=== PATIENT | male | born 1985 | race American Indian/Alaskan Native ===

== ENCOUNTER 2016-11-05 07:15 | Day surgery (SDC) | payer MEDICAID ==
[2016-10-17 09:32] VITALS: BMI 34.2
[2016-11-05] MEDS ORDERED: Midazolam 2 MG/2 ML VIAL ONE (09:11)
[2016-11-05] MEDS ORDERED: Propofol 10 mg/ml Inj (20 ML) ONE (09:11)
[2016-11-05] MEDS ORDERED: Lactated Ringer's 1,000 ML IV ONE (09:15)
[2016-11-05] MEDS ORDERED: Bupivacaine HCl 0.5% PF (10 ml) Inj ONE (09:19)
[2016-11-05] MEDS ORDERED: Bacitracin 500 Units/gm Oint Foilpak UD ONE (09:20)
[2016-11-05] MEDS ORDERED: ceFAZolin IV 2 gm in Dextrose 1 GM/50 ML BAG IVPB ONE (09:20)
[2016-11-05] MEDS ORDERED: Morphine 4 MG/ML VIAL ONE ×2 (11:54→12:04)
[2016-11-05] MEDS ORDERED: Neostigmine Methylsulfate 3mg/3ml Syringe IV ONE (11:55)
[2016-11-05] MEDS ORDERED: HYDROmorphone 0.5 mg/0.5 ml ISec IVP PRN (11:57)
[2016-11-05] MEDS ORDERED: Oxycodone/Acetaminophen 5/325 mg Tab PO PRN (12:28)
--- NOTE | 2016-11-05 12:28 | PCM.SURG1 ---
Surgeon's Initial Post Op Note - Surgeon's Notes Surgeon: Dr. Romero Chief Engineer Drilling And Recovery: Dr. Fair PGY-2 Type of Anesthesia: General Endo, Local Pre-Operative Diagnosis: Left small finger PIP contraction, tendon adhesions Operative Findings: see operative report Post-Operative Diagnosis: Left small finger PIP contraction, tendon adhesions Operation Performed: Left small finger removal of flexor tendon, insertion of mayank islverio, volar capsulotomy Specimen/Specimens Removed: flexor tendon Estimated Blood Loss: EBL {In ML}: 50 Blood Products Given: N/A Drains Used: No Drains Post-Op Condition: Good Date of Surgery/Procedure: 11/05/16 Time of Surgery/Procedure: 09:00
[2016-11-05 13:32] VITALS: O2SAT 100
[2016-11-05] MEDS ORDERED: HYDROmorphone 0.5 mg/0.5 ml ISec IVP ONE (14:55)
[2016-11-05 16:31] VITALS: BP 135/76; PULSE 59; RESP 18; TEMP 97
--- NOTE | 2016-11-20 12:47 | OP ---
PROCEDURE DATE: 11/05/2016 PREOPERATIVE DIAGNOSIS: Left small finger flexor tendon contracture and tendon adhesion. Proximal interphalangeal joint contracture. POSTOPERATIVE DIAGNOSIS: Left small finger flexor tendon contracture and tendon adhesion. Proximal interphalangeal joint contracture. SURGEON: Dr. Lola Romero. SUPERVISOR ELECTRON TUBE PROCESSING Dr. Denisse Fair. PROCEDURES: 1. Removal of left small finger flexor tendon in the finger, palm, and wrist. 2. Placement of Angelito silverio. 3. Volar capsulotomy of proximal interphalangeal joint. 4. Reconstruction of A4 kristin. 5. Revision of volar wrist scar. 6. Tenolysis of volar wrist flexor tendons. TOTAL FLUIDS GIVEN: 1 liter. ESTIMATED BLOOD LOSS: 75 mL. TOTAL TOURNIQUET TIME: 2 hours. COUNT: Lap, sponge and needle count were correct at the end of the case. CONDITION: The patient was stable upon discharge to recovery. INDICATIONS FOR SURGERY: The patient is a 31-year-old man who initially sustained a proximal phalanx fracture. At the time of his first tenolysis, it was noted that the FDP tendon was actually transected while the FDS was intact. The tendon was reconstructed with a palmaris graft. He underwent 2 subsequent tenolyses with incomplete active flexion of the DIP joint through our last surgery. In discussing with the patient the options of fusion versus tendon reconstruction, he opted for tendon reconstruction. He is here for stage I of tendon reconstruction. DESCRIPTION OF PROCEDURE: The patient was identified in the holding area. The left arm was marked. He was then laid supine on the operating room table. Once general anesthesia was induced, the patient's left arm was prepped and draped in the usual sterile fashion. Using an Esmarch, the hand and arm were exsanguinated and tourniquet inflated to 250 mm of pressure for a total of 2 hours. Beginning with an incision over the distal aspect of the finger, the area along the proximal phalanx was attempted to be preserved, but eventually the entire Johnny Z-plasty incisions were made into the palm and a separate incision at the wrist was performed in order to eliminate or remove the flexor tendon sheath. The FDS tendon was still noted to be intact at the base of the middle phalanx. The FDP tendon was debrided along the course of the flexor tendon sheath and carpal tunnel and the volar wrist leaving the distal 2 cm intact to the distal phalanx base. In the volar wrist, the previous wided scar which was 2 cm x 4 mm wide was removed full thickness. The incision was taken down identifying the median nerve and protecting it as the deep flexor tendons were identified. There was signficant synovitis noted. A volar capsulotomy over a volar plate was performed using a 15C sclapel in order to improve the contracture to a 15 degree contracture instead of a 45 degree contracture. The distal FDP tendon was split longitudinally and colton crossed to reconstruct the A4 kristin and create a cruciate ligament across the DIP joint. A Angelito silverio was then placed where FDP tendon used to be, threaded underneath the A2 kristin into the palm and to the level of the wrist. This was secured in place with a single 4-0 nylon suture. In the proximal forearm, the tendon was removed and tenolysis of the flexor tendons in the wrist was performed, debulking the scar tissue around the previously reconstructed FDP tendon. Wounds were irrigated. The tourniquet was deflated at this point and pressure held for 5 minutes. Any bleeding was controlled with electrocautery. The incisions were closed in the palm and the finger with 4-0 chromic interrupted horizontal mattress sutures, and the wrist was closed with 3-0 Monocryl to the deep dermis followed by 4-0 Monocryl running subcuticular. Dressings were applied using bacitracin, Adaptic, 4 x 4 gauze, Kerlix and secured in place with Coban. The patient tolerated the procedure well, was extubated on the table, transferred to a stretcher and brought to recovery in stable condition. Lola Romero MD cc: [id number] TT: 11/20/2016 12:46:50 christina HERNÁNDEZ
== END 2016-11-05 16:32 | disposition home or self-care (01) ==
LOC: C.SDS 07:15
PROVIDERS: ATTEND Plastic Surgery Surgery of the Hand
DX: M24.542 Contracture, left hand (principal); M67.844 Other specified disorders of tendon, left hand; M20.092 Other deformity of left finger(s)
CPT/HCPCS: 26390; 26500; 88305; C1762; J0690; J1170; J2250; J2270; J2405; J2704; J2710; J3010; J7120

== ENCOUNTER 2016-11-14 06:41 | Emergency (ER) | payer MEDICAID ==
[2016-11-14 06:41] VITALS: BMI 34.2
[2016-11-14 06:57] VITALS: RESP 16
--- NOTE | 2016-11-14 07:26 | C.PDOC ---
History Of Present Illness Pt presents to the ED with complains of intermittent diffuse abdominal pain x3 days. Pain is described as burning, cramping associated with vomiting and intermittent loose stools. Pt also reports due to vomiting, patient has been unable to take medications. Denies fever, chills, dysuria, back pain, GI bleed, or any other complaints. Denies trauma or recent travel. Time Seen by Provider: 11/14/16 07:17 Chief Complaint (Nursing): Abdominal Pain History Per: Patient History/Exam Limitations: no limitations Onset/Duration Of Symptoms: Days, Intermittent Episodes Current Symptoms Are (Timing): Still Present Severity: Moderate Location Of Pain/Discomfort: Diffuse Radiation Of Pain To:: None Quality Of Discomfort: Cramping, Burning Associated Symptoms: Vomiting, Diarrhea. denies: Fever, Chills, Urinary Symptoms Exacerbating Factors: None Alleviating Factors: None Recent travel outside of the [place]: No Past Medical History Reviewed: Historical Data, Nursing Documentation, Vital Signs Vital Signs: Last Vital Signs Temp 98.6 F 11/14/16 14:42 Pulse 61 11/14/16 14:42 Resp 16 11/14/16 14:42 BP 137/84 11/14/16 14:42 Pulse Ox 98 11/14/16 14:42 - Medical History PMH: COPD, Fractures, HIV ("SINCE 2013"), HTN Surgical History: Endoscopy Family History: States: Unknown Family Hx - Social History Hx Tobacco Use: Yes Hx Alcohol Use: Yes Hx Substance Use: No - Immunization History Hx Tetanus Toxoid Vaccination: Yes Hx Influenza Vaccination: Yes Hx Pneumococcal Vaccination: No Review Of Systems Except As Marked, All Systems Reviewed And Found Negative. Constitutional: Negative for: Fever, Chills Cardiovascular: Negative for: Chest Pain Respiratory: Negative for: Shortness of Breath Gastrointestinal: Positive for: Vomiting, Abdominal Pain, Diarrhea. Negative for: Hematochezia, Hematemesis Genitourinary: Negative for: Dysuria Musculoskeletal: Negative for: Back Pain Physical Exam - Physical Exam Appears: Non-toxic, No Acute Distress Skin: Warm, Dry, No Rash Head: Atraumatic, Normacephalic Eye(s): bilateral: Normal Inspection, PERRL, EOMI Oral Mucosa: Moist Neck: Normal ROM, Supple Chest: Symmetrical Cardiovascular: Rhythm Regular, No Friction Rub, No Murmur Respiratory: Normal Breath Sounds, No Rales, No Rhonchi, No Stridor, No Wheezing Gastrointestinal/Abdominal: Normal Exam, Soft, No Tenderness Back: Normal Inspection, No CVA Tenderness Extremity: Bilateral: Atraumatic Neurological/Psych: Oriented x3, Normal Speech, Normal Motor Gait: Steady ED Course And Treatment - Laboratory Results Result Diagrams: 11/14/16 08:12 11/14/16 09:12 O2 Sat by Pulse Oximetry: 100 (room air) Pulse Ox Interpretation: Normal Medical Decision Making Medical Decision Making: Plan: labs, pepcid, morphine, zofran, UA, IV fluids Patient reports that he stopped taking all his opiate medications and thinks he may be withdrawing from them. On re-exam, the patient reports improvement of symptoms. Lungs are CTA, heart is RRR, abdomen is soft, non-tender and patient is tolerating PO well. Patient is ambulatory in the ED with steady gait. Follow up with the medical doctor within 1-2 days, Return if worsened. Disposition - Disposition Referrals: Haydee Eddy MD [Medical Doctor] - Disposition: HOME/ ROUTINE Disposition Time: 14:00 Condition: GOOD Additional Instructions: Follow up with the medical doctor within 1-2 days, Return if worsened. Prescriptions: Famotidine [Pepcid] 20 mg PO DAILY #20 tab Ondansetron ODT [Zofran ODT] 1 odt PO BID PRN #10 odt PRN Reason: Nausea/Vomiting Instructions: Acute Nausea and Vomiting (ED) - Clinical Impression Clinical Impression: Abdominal pain, Opiate withdrawal - PA / INSURANCE CASE MANAGER / Resident Statement MD/DO has reviewed & agrees with the documentation as recorded. - Scribe Statement The provider has reviewed the documentation as recorded by the Mariajose Holt All medical record entries made by the Mariajose were at my direction and personally dictated by me. I have reviewed the chart and agree that the record accurately reflects my personal performance of the history, physical exam, medical decision making, and the department course for this patient. I have also personally directed, reviewed, and agree with the discharge instructions and disposition.
[2016-11-14] MEDS ORDERED: Sodium Chloride 0.9% 1,000 ML IV ONE ×2 (07:40→12:40)
[2016-11-14] MEDS ORDERED: Sodium Chloride 0.9% 1,000 ML ONE ×2 (07:52→12:53)
[2016-11-14] MEDS ORDERED: Morphine 4 MG/ML VIAL ONE (07:52)
[2016-11-14 08:26] LABS: RBC URINE < 1 /hpf (0-3); URINE BILIRUBIN NEGATIVE (NEGATIVE); URINE BLOOD NEGATIVE (NEGATIVE); URINE GLUCOSE (UA) NORMAL (Normal); URINE KETONE NEGATIVE (NEGATIVE); URINE LEUKOCYTE ESTERASE NEG Leu/uL (Negative); URINE PROTEIN 1+ mg/dL (NEGATIVE); URINE UROBILINOGEN NORMAL mg/dL (0.2-1.0); WBC URINE 1 /hpf (0-5)
[2016-11-14 08:28] LABS: URINE COLOR YELLOW (YELLOW)
[2016-11-14 08:32] LABS: BASO % 0.2 % (0.0-2.0); EOS % 0.3 % (0.0-4.0); HEMATOCRIT 44.2 % (35.0-51.0); LYMPH % 35.3 % (20.0-40.0); MEAN CELL VOLUME 73.5 fL (80.0-94.0); MEAN CORPUSCULAR HEMOGLOBIN 23.3 pg (27.0-31.0); MEAN CORPUSCULAR HGB CONC 31.7 g/dL (33.0-37.0); MEAN PLATELET VOLUME 8.6 fL (7.2-11.7); MONO # 0.6 K/uL (0.0-0.8); MONO % 7.5 % (0.0-10.0); NRBC % 0.1 % (0.0-2.0); RED CELL DISTRIBUTION WIDTH 15.7 % (11.5-14.5); WHITE BLOOD COUNT 8.4 K/uL (4.8-10.8)
[2016-11-14 09:23] LABS: CHLORIDE 101 mmol/L (98-107); POTASSIUM 3.3 mmol/L (3.6-5.2); SODIUM 140 mmol/L (132-148)
[2016-11-14 09:25] LABS: ALB/GLOB RATIO 1.5 (1.0-2.1); ALKALINE PHOSPHATASE 72 U/L (38-126); AST/SGOT 18 U/L (17-59); BILIRUBIN,TOTAL 0.6 mg/dL (0.2-1.3); BLOOD UREA NITROGEN 20 mg/dL (9-20); CARBON DIOXIDE 26 mmol/L (22-30); GFR AFRICAN-AMERICAN > 60; TOTAL PROTEIN 7.3 g/dL (6.3-8.3)
[2016-11-14 09:26] LABS: ALT/SGPT 25 U/L (21-72); CALCIUM 8.5 mg/dl (8.6-10.4); GLUCOSE,RANDOM 110 mg/dL (75-110)
--- NOTE | 2016-11-14 11:24 | CT ---
PROCEDURE: CT Abdomen and Pelvis without intravenous contrast HISTORY: abd pain COMPARISON: None. TECHNIQUE: Axial and reformatted coronal and sagittal CT images of the abdomen and pelvis were obtained without IV or oral contrast administration.. Contrast Dose: 0 IV contra Radiation dose: Total exam DLP = 1094.35 mGy-cm. This CT exam was performed using one or more of the following dose reduction techniques: Automated exposure control, adjustment of the mA and/or kV according to patient size, and/or use of iterative reconstruction technique. FINDINGS: LOWER THORAX: Unremarkable. LIVER: Unremarkable. No gross lesion or ductal dilatation. GALLBLADDER AND BILE DUCTS: Unremarkable. PANCREAS: Unremarkable. No gross lesion or ductal dilatation. SPLEEN: Unremarkable. ADRENALS: Unremarkable. No mass. KIDNEYS AND URETERS: Unremarkable. No hydronephrosis. No solid mass. VASCULATURE: Unremarkable. No aortic aneurysm. BOWEL: Unremarkable. No obstruction. No gross mural thickening. APPENDIX: Unremarkable. Normal appendix. PERITONEUM: Unremarkable. No free fluid. No free air. LYMPH NODES: Unremarkable. No enlarged lymph nodes. BLADDER: Unremarkable. REPRODUCTIVE: Unremarkable. BONES: No acute fracture. OTHER FINDINGS: None. IMPRESSION: No evidence of nephrolithiasis or hydronephrosis. No CT evidence of cholecystitis pancreatitis or appendicitis.
[2016-11-14] MEDS ORDERED: Aluminum Hydroxide/Magnesium Hydroxide Susp (30 mL) PO STA (12:19)
[2016-11-14] MEDS ORDERED: Belladonna-Phenobarbital PO STA (12:19)
[2016-11-14] MEDS ORDERED: Aluminum Hydroxide/Magnesium Hydroxide Susp (30 mL) ONE (12:28)
[2016-11-14] MEDS ORDERED: Belladonna-Phenobarbital ONE (12:28)
[2016-11-14 14:43] VITALS: BP 137/84; PULSE 61; TEMP 98.6
[2016-11-22 06:24] VITALS: O2SAT 100
== END 2016-11-14 14:47 | disposition home or self-care (01) ==
LOC: C.ER 06:41
DX: F11.23 Opioid dependence with withdrawal (principal); R10.84 Generalized abdominal pain; T40.0X5A Adverse effect of opium, initial encounter; Y92.009 Unspecified place in unspecified non-institutional (private) residence as the place of occurrence of the external cause
CPT/HCPCS: 74176; 80053; 81001; 83690; 85025; 96374; 96375; 99285; J2405; J7040

== ENCOUNTER 2016-12-13 22:00 | Emergency (ER) | payer MEDICAID ==
[2016-12-13 22:01] VITALS: BMI 34.2
[2016-12-13 22:12] VITALS: BP 149/75; PULSE 95; RESP 20; TEMP 98; O2SAT 100
[2016-12-13] MEDS ORDERED: Dexamethasone 4 mg/1 ml IM STA (22:46)
[2016-12-13] MEDS ORDERED: Oxycodone/Acetaminophen 5/325 mg Tab PO STA (22:46)
[2016-12-13] MEDS ORDERED: Oxycodone/Acetaminophen 5/325 mg Tab ONE (22:53)
[2016-12-13] MEDS ORDERED: Dexamethasone 4 mg/1 ml ONE (22:53)
--- NOTE | 2016-12-13 23:02 | C.PDOC ---
History Of Present Illness 31 year old male presents to the ED with complaints of a noted lump for one week to an area of a partial tendon repair with "silicone placement" to left mid -anterior wrist performed in October. Patient states he was seen by Dr. Shaw and was placed on steroids but the swelling continued. He also states he called Dr. Shaw who then met him at [facility] and prescribed medrol pack which he has with him at ED visit. Patient was instructed by Dr. Shaw to fill the prescription today and to see him next week for possible surgery. He is unable to fill the prescription today and due to the pain is requesting a dose of the steroid and pain medication. Patient denies any fever or new trauma. Time Seen by Provider: 12/13/16 22:29 Chief Complaint (Nursing): Abnormal Skin Integrity History Per: Patient, Other (Dr. Shaw ) History/Exam Limitations: no limitations Onset/Duration Of Symptoms: Days (one week ) Current Symptoms Are (Timing): Still Present Location Of Injury: Left: Wrist, Anterior: Wrist Quality Of Symptoms: Swollen. denies: Painful, Itching, Draining Severity: Moderate Recent travel outside of the [place]: No Additional History Per: Prior Records Past Medical History Reviewed: Historical Data, Nursing Documentation, Vital Signs Vital Signs: Last Vital Signs Temp 98 F 12/13/16 22:09 Pulse 95 H 12/13/16 22:09 Resp 20 12/13/16 23:07 BP 149/75 12/13/16 22:09 Pulse Ox 100 12/14/16 05:18 - Medical History PMH: Anxiety, COPD, Depression, Fractures (HAND), HIV ("SINCE 2013"), HTN Surgical History: Endoscopy Family History: States: Unknown Family Hx - Social History Hx Tobacco Use: Yes Hx Alcohol Use: Yes Hx Substance Use: No - Immunization History Hx Tetanus Toxoid Vaccination: Yes Hx Influenza Vaccination: Yes Hx Pneumococcal Vaccination: No Review Of Systems Constitutional: Negative for: Fever, Chills, Sweats Cardiovascular: Negative for: Chest Pain, Palpitations Respiratory: Negative for: Cough, Shortness of Breath Gastrointestinal: Negative for: Nausea, Vomiting, Abdominal Pain, Diarrhea Musculoskeletal: Positive for: Arm Pain (left mid-anterior wrist pain at sight of "lump" ) Physical Exam - Physical Exam Appears: Non-toxic, No Acute Distress Skin: Warm, Dry Head: Atraumatic Oral Mucosa: Moist Neck: Supple Chest: Symmetrical, No Deformity Cardiovascular: Rhythm Regular Extremity: No Normal ROM (mild limitation at the left wrist), Other (minimally tender 5cm x 4cm elevated mass to mid- anterior left wrist with healed scar in the center. Non-fluctuant, minimal erythema and no drainage. ) Neurological/Psych: Oriented x3 ED Course And Treatment O2 Sat by Pulse Oximetry: 100 (room air ) Progress Note: Patient was given decadron and requested one percocet prior to discharge. He was advised to keep appointment with Dr. Shaw Disposition Counseled Patient/Family Regarding: Diagnosis, Need For Followup, Rx Given - Disposition Disposition: HOME/ ROUTINE Disposition Time: 22:59 Condition: STABLE Additional Instructions: Please continue medrol pack as prescribed by dr BRANNON Take tylenol extra strength for pain Return to ER if worse Forms: General Discharge Instructions - Clinical Impression Clinical Impression: Skin irritation, Foreign body reaction of the skin - Scribe Statement The provider has reviewed the documentation as recorded by the Scribladan Poon All medical record entries made by the Destinyibladan were at my direction and personally dictated by me. I have reviewed the chart and agree that the record accurately reflects my personal performance of the history, physical exam, medical decision making, and the department course for this patient. I have also personally directed, reviewed, and agree with the discharge instructions and disposition.
== END 2016-12-13 23:07 | disposition home or self-care (01) ==
LOC: C.ER 22:00
DX: L98.8 Other specified disorders of the skin and subcutaneous tissue (principal)
CPT/HCPCS: 96372; 99283; J1100

== ENCOUNTER 2017-01-06 07:03 | Day surgery (SDC) | payer MEDICAID ==
[2017-01-06 07:04] VITALS: BMI 30.7
[2017-01-06] MEDS ORDERED: Propofol 10 mg/ml Inj (20 ML) ONE (07:32)
[2017-01-06] MEDS ORDERED: Midazolam 2 MG/2 ML VIAL ONE (07:32)
[2017-01-06] MEDS ORDERED: Bacitracin 500 Units/gm Oint Foilpak UD ONE (07:51)
[2017-01-06] MEDS ORDERED: Bupivacaine HCl 0.25% PF (10 ml) Inj ONE (07:51)
[2017-01-06] MEDS ORDERED: Triamcinolone Acetonide 40 mg/mL Inj ONE (07:52)
[2017-01-06] MEDS ORDERED: Lidocaine 1% Inj (20ml) ONE (07:52)
[2017-01-06] MEDS ORDERED: Lactated Ringer's 1,000 ML IV ONE ×2 (08:03→10:20)
[2017-01-06] MEDS: ceFAZolin IV 2 gm in Dextrose 1 GM/50 ML BAG IVPB ONE ×2 (08:10→08:41)
[2017-01-06] MEDS ORDERED: Bupivacaine HCl 0.5% PF (10 ml) Inj ONE (08:57)
[2017-01-06] MEDS ORDERED: Morphine 4 MG/ML VIAL ONE (09:33)
[2017-01-06] MEDS: HYDROmorphone 0.5 mg/0.5 ml ISec IVP PRN ×2 (11:05→11:45)
--- NOTE | 2017-01-06 11:07 | PCM.SURG1 ---
Surgeon's Initial Post Op Note - Surgeon's Notes Surgeon: Nick Asset Protection Assistant: Danyelle PGY2 Type of Anesthesia: General LMA, Local Pre-Operative Diagnosis: flexor tendon injury L small finger Operative Findings: scar tissue, synovitis, mayank silverio Post-Operative Diagnosis: same Operation Performed: Stage II mayank silverio removal and staged reconstruction of L small finger Specimen/Specimens Removed: synovitis/scar tissue Estimated Blood Loss: EBL {In ML}: 75 Blood Products Given: N/A Drains Used: Shelby Post-Op Condition: Good Date of Surgery/Procedure: 01/06/17 Time of Surgery/Procedure: 11:07
[2017-01-06] MEDS ORDERED: Oxycodone/Acetaminophen 5/325 mg Tab PO PRN (13:34)
[2017-01-06 13:50] VITALS: O2SAT 100
[2017-01-06 15:39] VITALS: BP 116/74; PULSE 72; RESP 20; TEMP 98.2
--- NOTE | 2017-01-08 13:31 | RAD ---
PROCEDURE: Intraoperative Fluoroscopy. HISTORY: LT. HAND SMALL FINGER JOINT RELEASE FINDINGS: Fluoroscopic assistance was provided for left 5th digit removal of Angelito silverio. Please refer to the operative report from
--- NOTE | 2017-01-09 12:52 | PCM.OP ---
Operative Report - Operative Report Date of Surgery/Procedure: 01/06/17 Time of Surgery/Procedure: 10:00 Surgeon: Lola Romero MD Server Assistant: Piero Bassett DO Anesthesia/Sedation: General endotrachial Pre-Operative Diagnosis: Left small finger status post Angelito sim placement for tendon reconstruction. Reactive tensosynovitis at wrist from Angelito Sim Post-Operative Diagnosis: Left small finger status post Angelito sim placement for tendon reconstruction. Reactive tensosynovitis at wrist from Angelito Sim Indication for Surgery: The patient is a 31-year-old male, who has several tenolysis procedures for a small finger tendon adhesion without success. He then underwent first stage of flexor tendon reconstruction in October and is here for the second stage. Operative Findings: PROCEDURE: Left small finger removal of Angelito sim tendon reconstruction using a slip of FCR tendon. Radical debridement of flexor tendon synovitis at the wrist of the index, long, reing and small fingers FDS and FDP tendons. Procedure/Operation Description: The patient was identified in the holding area. The left arm was marked. He was then brought into operating room and laid supine on the operating room table. Once general anesthesia was induced, the left arm was prepped and draped in the usual sterile fashion. Using an Esmarch, the arm was exsanguinated and tourniquet was inflated to total of 70 minutes. Begining with an incision in the finger over the DIP, the incision was created with a 15 scalpel. The Angelito sim was identified in the tip. The distal pahlanx base was exposed with a freer elevator. A second incision was. made at the volar wrist in order to expose the FDP to the ring finger. There was significant synovitis present in the wrist. The superficial and the deep flexor tendons to the index, long, ring and small fingers were encased in thick synovitis tissue. The ring finger PDF was displaced more superficially and there was evidence of the previous tendon weave scarring along the tendon. The palmaris tendon has been previously harvested. A split FCR tendon graft was going to be used. Under direct visualization, the FCR was divided at the level of the wrist and traced proximally. Using a tendon stripper, the 1/2 tendon was seperated from the muscle and rest of the FCR tendon. The proximal end muscle was debrided and the tendon was then set aside until we were ready. A radical synovectomy was performed of the flexor tendons. The median nerve was identified and preserved. The ulnar artery and nerve was identified and preserved. The tendon graft was then sewn to the Angelito sim at the level of the wrist and the Angelito sim was used to pull the flexor tendon sheath all the way to the distal aspect of the finger. In the finger, a 1.5 mm micro anchor was placed into the distal phalanx and the distal end of the tendon graft was secured in place with the provided sutures. The proximal aspect of the tendon was weaved into the FDP of the right finger using a Pulvertaft weave technique with 3 separate weaves. The weave was secured with 3-0 Supramid suture in a horizontal matress suture. The tension was set by observing natural cascade and bringing the small finger an additional 30% more flexion than would be normally expected. The tourniquet was deflated at this point and any pressure held for 15 minutes. Any bleeding was controlled with electrocautery before all of the incisions were closed. The incision in the finger was closed with 4-0 Chromic in an interrupted simple sutures. The wrist was closed with 3-0 Monocryl to the deep dermis and a shelby drain was placed in the wound for the synovitis. 4-0 Nylon sutures were used to close the skin at the wrist. The wound was then dressed with Adaptic and bacitracin and the hand 4 x 4 gauze. A dorsal shell was then applied. The hand was padded with Webril. Dorsal shell was applied and secured in place with an JULIA wrap. The patient tolerated the procedure well, was extubated on the table, and transferred to recovery. Estimated Blood Loss: 75 mL Blood Replaced: None Sponge/Instrument Count: Lap, sponge and needle count were correct at the end of the case. Drains: Shelby x 1 Complications: None. Specimen: Synovitial tissue and scar tissue Discharge & Condition: The patient was stable upon discharge to recovery.
== END 2017-01-06 15:30 | disposition home or self-care (01) ==
LOC: C.SDS 07:03
PROVIDERS: ATTEND Plastic Surgery Surgery of the Hand
DX: T84.89XA Other specified complication of internal orthopedic prosthetic devices, implants and grafts, initial encounter (principal); M67.844 Other specified disorders of tendon, left hand; M25.642 Stiffness of left hand, not elsewhere classified; M65.842 Other synovitis and tenosynovitis, left hand
CPT/HCPCS: 11043; 26320; 26500; 88305; C1713; J0690; J1170; J2250; J2270; J2704; J3010; J7120

== ENCOUNTER 2017-03-30 13:41 | Inpatient (IN) | payer MEDICAID ==
[2017-03-30 13:41] VITALS: BMI 30.7
--- NOTE | 2017-03-30 14:27 | C.PDOC ---
History Of Present Illness 31 y/o male presents to ED with complaints of feeling depressed and suicidal ideation. Patient has no plan in mind and denies any physical complaints at this time. Time Seen by Provider: 03/30/17 14:10 Chief Complaint (Nursing): Psychiatric Evaluation History Per: Patient History/Exam Limitations: no limitations Onset/Duration Of Symptoms: Hrs Current Symptoms Are (Timing): Still Present Suicide/Self Injury Attempted (Context): None Modifying Factor(s): None Associated Symptoms: Depression, Suicidal Thoughts Past Medical History Reviewed: Historical Data, Nursing Documentation, Vital Signs Vital Signs: Last Vital Signs Temp 98.5 F 03/30/17 17:39 Pulse 72 03/30/17 17:39 Resp 16 03/30/17 18:53 BP 140/95 H 03/30/17 17:39 Pulse Ox 100 03/30/17 17:39 - Medical History PMH: Anxiety, COPD, Depression, Fractures (HAND LEFT), HIV ("SINCE 2013") Surgical History: Endoscopy Family History: States: No Known Family Hx - Social History Hx Tobacco Use: Yes Hx Alcohol Use: Yes Hx Substance Use: No - Immunization History Hx Tetanus Toxoid Vaccination: Yes Hx Influenza Vaccination: Yes Hx Pneumococcal Vaccination: No Review Of Systems Except As Marked, All Systems Reviewed And Found Negative. Constitutional: Negative for: Fever, Chills Cardiovascular: Negative for: Chest Pain Respiratory: Negative for: Shortness of Breath Gastrointestinal: Negative for: Nausea, Vomiting Skin: Negative for: Rash Psych: Positive for: Depression, Suicidal ideation Physical Exam - Physical Exam Appears: Non-toxic, No Acute Distress Skin: Normal Color, Warm, Dry, No Rash Head: Atraumatic, Normacephalic Eye(s): bilateral: Normal Inspection Oral Mucosa: Moist Neck: Normal ROM, Supple Chest: Symmetrical Cardiovascular: Rhythm Regular, No Murmur Respiratory: Normal Breath Sounds, No Rales, No Rhonchi, No Wheezing Gastrointestinal/Abdominal: Soft, No Tenderness, No Guarding, No Rebound Extremity: Normal ROM, Capillary Refill (<2 seconds) Neurological/Psych: Oriented x3 ED Course And Treatment - Laboratory Results Result Diagrams: 03/30/17 14:33 03/30/17 14:33 O2 Sat by Pulse Oximetry: 100 (RA) Pulse Ox Interpretation: Normal Reevaluation Time: 16:42 Reassessment Condition: Unchanged (stable) - Physician Consult Information Outcome Of Conversation: [id number]: d/w Crisis, ok to Psych Medical Decision Making Medical Decision Making: portacath appears normal no acute interventions required anxieties allayed. Disposition Doctor Will See Patient In The: Office Counseled Patient/Family Regarding: Studies Performed, Diagnosis - Disposition Disposition: HOME/ ROUTINE Disposition Time: 16:19 Condition: GOOD - Clinical Impression Clinical Impression: Bipolar 1 disorder - Scribe Statement The provider has reviewed the documentation as recorded by the Destinyibladan Tony All medical record entries made by the Destinyibladan were at my direction and personally dictated by me. I have reviewed the chart and agree that the record accurately reflects my personal performance of the history, physical exam, medical decision making, and the department course for this patient. I have also personally directed, reviewed, and agree with the discharge instructions and disposition.
[2017-03-30 14:41] LABS: BASO % 0.6 % (0.0-2.0); LYMPH % 42.1 % (20.0-40.0); MEAN CELL VOLUME 75.4 fL (80.0-94.0); MEAN CORPUSCULAR HEMOGLOBIN 24.1 pg (27.0-31.0); MEAN PLATELET VOLUME 8.1 fL (7.2-11.7); MONO # 0.4 K/uL (0.0-0.8); MONO % 9.1 % (0.0-10.0); RED CELL DISTRIBUTION WIDTH 16.1 % (11.5-14.5); WHITE BLOOD COUNT 4.7 K/uL (4.8-10.8)
[2017-03-30 14:55] LABS: RBC URINE < 1 /hpf (0-3); WBC URINE 1 /hpf (0-5)
[2017-03-30 14:56] LABS: URINE BILIRUBIN NEGATIVE (NEGATIVE); URINE BLOOD NEGATIVE (NEGATIVE); URINE COLOR Yellow (YELLOW); URINE GLUCOSE (UA) NORMAL (Normal); URINE KETONE NEGATIVE (NEGATIVE); URINE LEUKOCYTE ESTERASE NEG Leu/uL (Negative); URINE PROTEIN NEGATIVE (NEGATIVE); URINE UROBILINOGEN NORMAL mg/dL (0.2-1.0)
[2017-03-30 15:13] LABS: BLOOD UREA NITROGEN 18 mg/dL (9-20); CARBON DIOXIDE 25 mmol/L (22-30); CHLORIDE 105 mmol/L (98-107); GFR AFRICAN-AMERICAN > 60; GLUCOSE,RANDOM 106 mg/dL (75-110); POTASSIUM 3.6 mmol/L (3.6-5.2); SODIUM 143 mmol/L (132-148); TOTAL PROTEIN 7.5 g/dL (6.3-8.3)
[2017-03-30 15:14] LABS: ALB/GLOB RATIO 1.6 (1.0-2.1); ALCOHOL SERUM < 10 mg/dl (0-10); ALKALINE PHOSPHATASE 63 U/L (38-126); ALT/SGPT 36 U/L (21-72); AST/SGOT 31 U/L (17-59); BILIRUBIN,TOTAL 0.3 mg/dL (0.2-1.3); CALCIUM 9.6 mg/dl (8.6-10.4)
--- NOTE | 2017-03-30 18:32 | PCM.BM ---
<Peggy Matos - Last Filed: 03/30/17 18:28> Treatment Plan Problems - Problems identified on initial assessmt Depression Date Initiated: 03/30/17 Time Initiated: 18:00 Assessment reference: NA Status: Active Suicidal Ideations Date Initiated: 03/30/17 Time Initiated: 18:00 Assessment reference: NA Status: Active Treatment assets and liabiliti Patient Assests: adapts well, cooperative, ADL independent, negotiates basic needs, cognitively intact Patient Liabilities: live alone (lives with ), financial problems ( Unemployed), substance abuse (Negative), medical problems (HIV+) - Milieu Protocol Maintain good personal hygiene: daily Encourage regular showers, daily Remind patient to perform daily oral care, other Assist patient to perform ADL's (Self) Conduct patient checks and document Observation sheet: Q15 minutes (Safety) Maintain personal safety: every shift Educate patient to report safety concerns to staff, every shift Monitor environment for contraband/sharps Medication safety: Monitor for expected outcome, potential side effects: every shift, Assess barriers to learning: every shift, Assess readiness for medication education: every shift <Lynne Mendez - Last Filed: 04/01/17 11:43> Family Contact Family involvement: Family/SO is involved Family contact: Patient agrees to contact Family contact name: Srinivasa Landers- Family contacted how many times per week?: 1 - Goals for Treatment Patient goals for treatment: "I want to go home." Discharge/Continuing Care - Education Needs Education Needs: Patient Medication, Patient Coping Skills - Discharge Discharge Criteria: Tolerates medication w/o severe side effects, Free of Suicidal thoughts Discharge to:: Home, With Family - Treatment Team Participation Discussed with Family/SO: Yes Was Patient/Family/SO present at Treatment Team Meeting: Yes <Rah Laughlin - Last Filed: 04/01/17 11:53> - Diagnosis (1) Bipolar 1 disorder Status: Acute Interventions: 04/01/17 11:53 * Assess/adjust medications daily and /or as needed * See patient on an individual basis 7x/week to assess level of manic behaviors and stability * Discuss risks, benefits, side effects and alternatives of medications * <Jana Cox - Last Filed: 04/01/17 14:53> - Milieu Protocol Maintain good personal hygiene: every shift Encourage regular showers, every shift Remind patient to perform daily oral care, every shift Assist patient to perform ADL's Maintain personal safety: every shift Educate patient to report safety concerns to staff, every shift Monitor environment for contraband/sharps Medication safety: Monitor for expected outcome, potential side effects: every shift, Assess barriers to learning: every shift, Assess readiness for medication education: every shift
[2017-03-31] MEDS: Hydrocodone/Acetaminophen 5 mg /300 mg Tab PO PRN ×4 (00:13→18:24)
[2017-03-31] MEDS: STRIBILD TABLET PO SCH (10:02)
--- NOTE | 2017-03-31 10:07 | PCM.PSYCH ---
Initial Psychiatric Evaluation - Initial Psychiatric Evaluation Type of Admission: Voluntary Legal Status: Capacity Chief Complaint (in patient's own words): "I don't feel good." History of Present Illness and Precipitating Events: Pt. is a 31 y/o male who presented to the ED for ongoing suicidal and homicidal thoughts for 1 month. Pt. says he has stopped taking his medications for 1 month now, and this caused him to become more irritable and depressed. Pt. stated that he would cut his wrists or stop taking his medications so that he would " slowly." Pt. states he has felt suicidal before in the past, approximately 3 yrs. ago, which prompted psychiatric admission in [place], and previous to that he attempted suicide via cutting as a juvenile, which led to hospitalization for 1-2 yrs. Pt. has been seeing Dr. Wilkerson at [facility] for a month now for bipolar d/o, depression, and anxiety. Pt. denies use of heroin, cocaine, marijuana, cigarettes, and alcohol. Pt. states he sometimes talks to himself and hears his own voices in his head. Pt. denies suicidal ideation, but admits to having homicidal ideation when he is in crowded places. Pt. reports he is anxious b/c he does not want to stay in the hospital with all the patients. Pt. reports to having racing thoughts and elevated mood at times, where he becomes very fidgety and paces back and forth. Pt. denies flight of ideas and denies hopelessness and helplessness. He states sleep and appetite have been okay. Pt. remains emotional and tearful throughout the interview. PMH: HIV , HTN Fam Hx: denies Allergy: aspirin, cranberry juice Social Hx: ; lives alone; no children; unemployed--TRA paying rent After care discussed. Pt. plans to stay on his medications and continue seeing Dr. Wilkerson at [facility]. Current Medications: Active Medications Generic Name Dose Route Start Last Admin Trade Name Freq PRN Reason Stop Dose Admin Acetaminophen 650 mg 03/30/17 18:54 Tylenol 325mg Tab PO Q6 PRN Pain, moderate (4-7) Acetaminophen/Hydrocodone Bitart 2 tab 03/30/17 18:53 03/31/17 06:41 Vicodin 5 Mg-300 Mg PO 04/06/17 18:54 2 tab Q6H PRN Administration Pain, severe (8-10) Aripiprazole 10 mg 03/31/17 18:00 Abilify PO QPM DAVID Citalopram Hydrobromide 20 mg 03/31/17 10:00 03/31/17 09:21 Celexa PO 20 mg DAILY DAVID Administration Gabapentin 300 mg 03/30/17 18:15 03/31/17 09:20 Neurontin PO 300 mg BID DAVID Administration Gemfibrozil 600 mg 03/31/17 10:00 03/31/17 09:20 Lopid PO 600 mg DAILY DAVID Administration Home Med 1 tab 03/31/17 10:00 03/31/17 10:02 Patient's Own Medication PO 1 tab DAILY DAVID Administration Hydroxyzine HCl 50 mg 03/30/17 18:15 03/31/17 09:20 Atarax PO 50 mg Q6H PRN Administration Anxiety Ibuprofen 600 mg 03/30/17 18:15 Motrin Tab PO Q6H PRN Pain, moderate (4-7) Pneumococcal Polyvalent Vaccine 0.5 ml 04/02/17 10:00 Pneumovax 23 Vaccine IM 04/02/17 10:01 .ONCE ONE Quetiapine Fumarate 100 mg 03/30/17 22:00 03/30/17 21:50 Seroquel PO Not Given HS DAVID Trazodone HCl 100 mg 03/30/17 18:15 Desyrel PO HS PRN Insomnia Past Psychiatric History - Past Psychiatric History Previous Treatment History: None Pertinent Medical Hx (Current Medical&Sleep Prob, Allergies): Allergies Allergy/AdvReac Type Severity Reaction Status Date / Time aspirin AdvReac Severe blood in Verified 12/13/16 22:15 stool ibuprofen AdvReac Severe blood in Verified 12/13/16 22:15 stool CRANBERRY JUICE Allergy Uncoded 12/13/16 22:15 Aripiprazole 10 mg PO BID 03/30/17 Citalopram Hydrobromide [Citalopram HBr] 20 mg PO DAILY 03/30/17 Doxepin HCl 25 mg PO HS 03/30/17 Elviteg/Maia/Emtric/Tenofo Dis [Stribild] 1 tab PO DAILY 03/30/17 Gemfibrozil 600 mg PO DAILY 03/30/17 Hydrocodone/Acetaminophen [Acetaminophen-Hydrocodone Bitartrate 325 mg-1] 1 tab PO Q6 PRN 03/30/17 Loratadine [Claritin] 10 mg PO DAILY 03/30/17 Quetiapine Fumarate [Seroquel] 300 mg PO HS 03/30/17 Review of Systems - Review of Systems All systems: reviewed and no additional remarkable complaints except - Neurological Neurological: UNREMARKABLE - Psychiatric Psychiatric: Anhedonia, Anxiety, Depression, Homicidal Ideation, Mood Swings, Suicidal Ideation. absent: Auditory Hallucinations, Hopelessness, Visual Hallucinations Mental Status Examination - Personal Presentation Personal Presentation: Looks stated age - Affect Affect: Constricted, Depressed - Motor Activity Motor Activity: Calm - Reliability in Providing Information Reliability in Providing Information: Fair - Speech Speech: Organized - Mood Mood: Depressed, Anxious - Formal Thought Process Formal Thought Process: Hallucinations, Delusions, Paranoia, Flight of ideas - Hallucinations/Delusions Hallucinations: Visual, Auditory Delusions: Persecution - Obsessions/Compulsions Obsessions: No Compulsions: No - Cognitive Functions Orientation: Person, Place, Situation, Time Sensorium: Alert Attention/Concentration: Attentive Abstract Thinking: [place] Estimate of Intelligence: Below average Judgement: Imparied, as evidence by: Poor judgement, Imparied, as evidence by: Lack of insight into illness Memory: Remote intact, as evidenced by: Abilit to recall sig. life events - Risk Risk: Suicidal, Homicidal, Diminished functioning - Limitations Limitations: Living alone, Other (unemployed) DSM 5 DX - DSM 5 DSM 5 Diagnosis: Bipolar d/o, Mixed severe w psychotic features - Recommended/Plan of Treatment Treatment Recommendations and Plan of Treatment: Bipolar d/o, Mixed severe w psychotic features CBT Psychoeducation Supportive therapy and group therapy Attend groups and activities Abilify 10 mg PO QPM Seroquel 100 mg HS DAVID Trazodone 100 mg HS PRN Gabapentin 300 gm PO BID - Smoking Cessation Smoking Cessation Initiated: No
[2017-04-01] MEDS: Hydrocodone/Acetaminophen 5 mg /300 mg Tab PO PRN ×4 (00:42→18:55)
[2017-04-01] MEDS: STRIBILD TABLET PO SCH (09:58)
--- NOTE | 2017-04-01 11:41 | PCM.PYCHPN ---
Psychiatric Progress Note - Psychiatric Progress Note Patient seen today, length of contact: 15 min. Patient Chief Complaint: "I feel better." Problems Identified/Issues Discussed: Pt. is seen, chart reviewed, case discussed with staff. Pt. states his mood is much better today. As per nurse, pt. slept very well through the night, but the pt. claims that he feels like he did not--"I don't feel rested when I wake up." Pt. denies suicidal and homicidal ideation and denies visual and auditory hallucinations at this time. Pt. denies racing thoughts. He states staying in the hospital is making him even more anxious and wants to be discharged as soon as possible. No new symptoms reported, improving slowly and needs more time. No SEs from medications, risks discussed. After care discussed. He will be seeing Dr. Wilkerson at [facility]. Medication Change: No Medical Record Reviewed: Yes Mental Status Examination - Cognitive Function Orientation: Person, Place, Situation, Time Memory: Intact Attention: WNL Concentration: WNL Association: WNL Fund of Knowledge: WNL - Mood Mood: Depressed, Anxious - Affect Affect: Constricted, Depressed - Speech Speech: Soft - Formal Thought Process Formal Thought Process: Hallucinations, Delusions, Paranoia, Flight of ideas - Homicidal Ideation Homicidal Ideation: Yes Goal/Treatment Plan - Goal/Treatment Plan Need for Continued Stay: Remain at risks for inpatient hospitalization, Severe depression anxiety, Discharge may exacerbated symptoms Progress Toward Problem(s) and Goals/Treatment Plan: Bipolar d/o, Mixed severe w psychotic features CBT Psychoeducation Supportive therapy and group therapy Attend groups and activities Abilify 10 mg PO QPM Seroquel 100 mg HS DAVID Trazodone 100 mg HS PRN Gabapentin 300 gm PO BID Estimated Date of D/C: 04/03/17
[2017-04-01 16:47] VITALS: O2SAT 99
[2017-04-02] MEDS: Hydrocodone/Acetaminophen 5 mg /300 mg Tab PO PRN ×2 (00:45→07:42)
[2017-04-02 08:37] VITALS: BP 143/78; PULSE 80; RESP 19; TEMP 98.1
[2017-04-02] MEDS: STRIBILD TABLET PO SCH (09:36)
--- NOTE | 2017-04-02 09:43 | PCM.PYCHDC ---
Mental Status Examination - Mental Status Examination Orientation: Person, Place, Situation, Time Memory: Intact Mood: Neutral Affect: Constricted Speech: Soft Attention: WNL Concentration: WNL Association: WNL Fund of Knowledge: WNL Formal Thought Process: No Impairment Description of patient's judgement and insight: good, fair Psychotic Thoughts and Behaviors: denies any AVH Suicidal Ideation: No Current Homicidal Ideation?: No Discharge Summary - Discharge Note Reason for Hospitalization: Pt. is a 31 y/o male who presented to the ED for ongoing suicidal and homicidal thoughts for 1 month. Pt. says he has stopped taking his medications for 1 month now, and this caused him to become more irritable and depressed. Pt. stated that he would cut his wrists or stop taking his medications so that he would " slowly." Pt. states he has felt suicidal before in the past, approximately 3 yrs. ago, which prompted psychiatric admission in [place], and previous to that he attempted suicide via cutting as a juvenile, which led to hospitalization for 1-2 yrs. Pt. has been seeing Dr. Wilkerson at [facility] for a month now for bipolar d/o, depression, and anxiety. Pt. denies use of heroin, cocaine, marijuana, cigarettes, and alcohol. Pt. states he sometimes talks to himself and hears his own voices in his head. Pt. denies suicidal ideation, but admits to having homicidal ideation when he is in crowded places. Pt. reports he is anxious b/c he does not want to stay in the hospital with all the patients. Pt. reports to having racing thoughts and elevated mood at times, where he becomes very fidgety and paces back and forth. Pt. denies flight of ideas and denies hopelessness and helplessness. He states sleep and appetite have been okay. Pt. remains emotional and tearful throughout the interview. Consultations:: List each consultation separately and include: 1. Reason for request. 2. Findings. 3. Follow-up Summary of Hospital Course include:: 1. Description of specific treatment plan utilized for patients during their course of treatmen. 2. Summarize the time- course for resolution of acute symptoms and/or regressed behaviors. 3. Describe issues identified and worked on during hospitalization. 4. Describe medication utilized. 5. Describe medical problems identified and treated. 6. Reassessment of suicide risk Summary of Hospital Course: During the course of his stay, patient (pt) started progressively improving and he no longer remained irritable, depressed, paranoid, and suicidal. His mood was improved and he started attending groups and meetings and started socializing. Patient denied any feelings of hopelessness, helplessness, and worthlessness, denied any problem with the sleep or appetite, denied suicidal ideation or homicidal ideation. Pt denied any auditory or visual hallucinations. Some changes were made in his current medications and patient was discharged on following medications. He tolerated these medications very well and denied any side effects. CBT and LA were used. - Diagnosis (1) Bipolar 1 disorder Current Visit: Yes Status: Acute - Final Diagnosis (DSM 5) Condition upon Discharge: GOOD DSM 5: Bipolar d/o, Mixed severe w psychotic features Disposition: HOME/ ROUTINE Follow-up Treatment Plan: Education: Pt was educated and counseled about the risks and benefits of taking and not taking medications. Pt was educated and counseled about the risks of drinking and abusing drugs. Pt was educated and counseled to go to the ER or call 911 if pt develop suicidal ideation or homicidal ideation, worsening of symptoms or severe side effects of the meds. Prescriptions/Medication Reconciliation: ARIPiprazole [Abilify] 10 mg PO QPM #30 tab Citalopram [celEXA] 20 mg PO DAILY #30 tab Gabapentin [Neurontin] 300 mg PO BID #60 cap QUEtiapine [Seroquel] 100 mg PO HS #30 tab - Smoking Cessation Smoking Cessation Medication prescribed: No - Antipsychotic Medications Pt discharged on 2 or more routine antipsychotic medications: No
[2017-04-02] MEDS ORDERED: Pneumococcal 23-Valent Vaccine IM ONE (10:00)
== END 2017-04-02 11:20 | disposition home or self-care (01) | DRG 430 ==
LOC: C.ER 13:41 → C.9E 16:41 → C.5E 17:35
PROVIDERS: ADMIT Psychiatry & Neurology Psychiatry; ATTEND Psychiatry & Neurology Psychiatry
PROC: GZHZZZZ Group Psychotherapy (ICD-10-PCS; principal; 2017-03-30)
PROC: GZ58ZZZ Individual Psychotherapy, Cognitive-Behavioral (ICD-10-PCS; 2017-03-30)
PROC: GZ56ZZZ Individual Psychotherapy, Supportive (ICD-10-PCS; 2017-03-30)
DX: F31.64 Bipolar disorder, current episode mixed, severe, with psychotic features (principal); R45.851 Suicidal ideations; I10 Essential (primary) hypertension; J44.9 Chronic obstructive pulmonary disease, unspecified; F17.210 Nicotine dependence, cigarettes, uncomplicated; Z21 Asymptomatic human immunodeficiency virus [HIV] infection status; F41.8 Other specified anxiety disorders

== ENCOUNTER 2017-08-05 05:06 | Emergency (ER) | payer MEDICAID ==
[2017-08-05 05:06] VITALS: BMI 30.7
--- NOTE | 2017-08-05 05:44 | C.PDOC ---
History Of Present Illness 32 year old male with a Hx of chronic back pain presents to the ER with a complaint of lower back pain that feel similar to his past chronic pain. Patient reports he is on pain management and has an appointment in 3 days but states he ran out of his medication and is requesting something to help him until then. Denies weakness, numbness, recent injury/trauma, hematuria, dysuria , or incontinence. Pt came in fully ambulatory into the ED. Time Seen by Provider: 08/05/17 05:13 Chief Complaint (Nursing): Back Pain History Per: Patient History/Exam Limitations: no limitations Onset/Duration Of Symptoms: Hrs Current Symptoms Are (Timing): Still Present Quality Of Discomfort: Unable To Describe Severity: None Previous Symptoms: None Associated Symptoms: None Recent travel outside of the [place]: No Past Medical History Reviewed: Historical Data, Nursing Documentation, Vital Signs Vital Signs: Last Vital Signs Temp 98 F 08/05/17 06:02 Pulse 86 08/05/17 06:02 Resp 18 08/05/17 06:02 BP 149/70 08/05/17 06:02 Pulse Ox 97 08/05/17 06:09 - Medical History PMH: Anxiety, Arthritis, Bipolar Disorder, COPD, Depression, Fractures (HAND LEFT), HIV ("SINCE 2013") Surgical History: Endoscopy - [facility] Procedures GROUP PSYCHOTHERAPY (03/30/17) INDIVIDUAL PSYCHOTHERAPY, COGNITIVE-BEHAVIORAL (03/30/17) INDIVIDUAL PSYCHOTHERAPY, SUPPORTIVE (03/30/17) Family History: States: Unknown Family Hx - Social History Hx Tobacco Use: Yes Hx Alcohol Use: Yes Hx Substance Use: No - Immunization History Hx Tetanus Toxoid Vaccination: No Hx Influenza Vaccination: Yes Hx Pneumococcal Vaccination: No Review Of Systems Genitourinary: Negative for: Dysuria, Incontinence, Hematuria Musculoskeletal: Positive for: Back Pain Neurological: Negative for: Weakness, Numbness Physical Exam - Physical Exam Appears: Non-toxic, No Acute Distress Skin: Normal Color, Warm, Dry Head: Atraumatic, Normacephalic Eye(s): bilateral: Normal Inspection Back: No CVA Tenderness, No Vertebral Tenderness, No Paraspinal Tenderness Extremity: Normal ROM (x4) Neurological/Psych: Oriented x3, Normal Speech, Normal Motor, Normal Sensation Gait: Steady ED Course And Treatment O2 Sat by Pulse Oximetry: 97 (Room air) Pulse Ox Interpretation: Normal Progress Note: Patient offered toradol but states he is allergic to ibuprofen, offered tramadol but refuses, patient is requesting morphine IM- pt was informed no narcotics could be given today as pt is part of a pain management program. pt then agreed to take tylenol,tylenol ordered. Patient discharged with Rx for tylenol and instructed to follow up with pain management today or as scheduled. Disposition Counseled Patient/Family Regarding: Diagnosis, Need For Followup, Rx Given - Disposition Disposition: HOME/ ROUTINE Disposition Time: 05:42 Condition: STABLE Additional Instructions: Follw up with pain management today Return to ER if worse Prescriptions: Acetaminophen [Tylenol 325mg tab] 650 mg PO Q4 #20 tab Instructions: Chronic Back Pain (ED) Forms: [employer] (Guamanian) - Clinical Impression Clinical Impression: Back pain, Encounter for medication refill - PA / [employer] / Resident Statement MD/DO has reviewed & agrees with the documentation as recorded. - Scribe Statement The provider has reviewed the documentation as recorded by the Scribe Srinivasa Grier All medical record entries made by the Scribe were at my direction and personally dictated by me. I have reviewed the chart and agree that the record accurately reflects my personal performance of the history, physical exam, medical decision making, and the department course for this patient. I have also personally directed, reviewed, and agree with the discharge instructions and disposition.
[2017-08-05 06:03] VITALS: BP 149/70; PULSE 86; RESP 18; TEMP 98
[2017-08-05 06:04] VITALS: O2SAT 97
== END 2017-08-05 06:03 | disposition home or self-care (01) ==
LOC: C.ER 05:06
DX: M54.5 Low back pain (principal); Z76.0 Encounter for issue of repeat prescription

== ENCOUNTER 2017-08-06 01:46 | Emergency (ER) | payer MEDICAID ==
[2017-08-06 01:46] VITALS: BMI 30.7
[2017-08-06 02:01] VITALS: BP 155/94; PULSE 77; TEMP 97.9; O2SAT 100
--- NOTE | 2017-08-06 02:56 | C.PDOC ---
History Of Present Illness 32 year old male with medical history of chronic back pain, who presents to the emergency department with a complaint of lower back pain ongoing since last ED visit yesterday. Patient is requesting Morphine for pain since his current medications have not helped. He reported a pending appointment with pain management doctor in 3 days. Denied any weakness, numbness, incontinence or trauma. PMD: none provided Time Seen by Provider: 08/06/17 02:13 Chief Complaint (Nursing): Back Pain History Per: Patient History/Exam Limitations: no limitations Onset/Duration Of Symptoms: Days (x2) Current Symptoms Are (Timing): Still Present Past Medical History Reviewed: Historical Data, Nursing Documentation, Vital Signs Vital Signs: Last Vital Signs Temp 97.9 F 08/06/17 02:00 Pulse 77 08/06/17 02:00 Resp 18 08/06/17 02:57 BP 155/94 H 08/06/17 02:00 Pulse Ox 100 08/06/17 03:31 - Medical History PMH: Anxiety, Arthritis, Bipolar Disorder, COPD, Depression, Fractures (HAND LEFT), HIV ("SINCE 2013") Denies: Diabetes, Hepatitis, Chronic Kidney Disease, Seizures, Sexually Transmitted Disease Surgical History: Endoscopy - [facility] Procedures GROUP PSYCHOTHERAPY (03/30/17) INDIVIDUAL PSYCHOTHERAPY, COGNITIVE-BEHAVIORAL (03/30/17) INDIVIDUAL PSYCHOTHERAPY, SUPPORTIVE (03/30/17) Family History: States: Unknown Family Hx - Social History Hx Tobacco Use: Yes Hx Alcohol Use: Yes Hx Substance Use: No - Immunization History Hx Tetanus Toxoid Vaccination: No Hx Influenza Vaccination: Yes Hx Pneumococcal Vaccination: No Review Of Systems Except As Marked, All Systems Reviewed And Found Negative. Genitourinary: Negative for: Incontinence Musculoskeletal: Positive for: Back Pain (lower). Negative for: Other (trauma) Neurological: Negative for: Weakness, Numbness Physical Exam - Physical Exam Appears: Well, No Acute Distress Back: Normal Inspection, No CVA Tenderness, No Vertebral Tenderness, Paraspinal Tenderness (left-sided) Extremity: Normal ROM (lower), No Tenderness, No Pedal Edema Neurological/Psych: Oriented x3 ED Course And Treatment O2 Sat by Pulse Oximetry: 100 (RA) Pulse Ox Interpretation: Normal Medical Decision Making Medical Decision Making: Initial Impression: Back pain ____ [place] HR GENERALIST aware reviewed: --Patient recently filled 60 tabs of Percocet 10mg on 07/29/17. --30 tabs of Morphine 60mg filled on 07/23/17. Pt understands that no more narcotics can be prescrinbed and will follow up with his pain managemt doctor Scribe Attestation: Documented by Mirela Brennan, acting as a scribe for Jyoti Jenkins Provider Scribe Attestation: All medical record entries made by the Scribe were at my direction and personally dictated by me. I have reviewed the chart and agree that the record accurately reflects my personal performance of the history, physical exam, medical decision making, and the department course for this patient. I have also personally directed, reviewed, and agree with the discharge instructions and disposition. Disposition Counseled Patient/Family Regarding: Diagnosis, Need For Followup, Rx Given - Disposition Disposition: HOME/ ROUTINE Disposition Time: 02:50 Condition: STABLE Additional Instructions: Please follow up with your pain management doctor tomorrow Return to ER if worse Instructions: Narcotic Abuse (ED), Chronic Back Pain (ED) Forms: Exposed Vocals (Belarusian) - Clinical Impression Clinical Impression: Narcotic abuse, Chronic pain
[2017-08-06 02:58] VITALS: RESP 18
== END 2017-08-06 02:57 | disposition home or self-care (01) ==
LOC: C.ER 01:46
DX: F11.10 Opioid abuse, uncomplicated (principal); G89.29 Other chronic pain; J44.9 Chronic obstructive pulmonary disease, unspecified

== ENCOUNTER 2017-11-24 05:47 | Day surgery (SDC) | payer MEDICAID ==
[2017-11-24] MEDS ORDERED: Lidocaine/Epinephrine 1% 1:100000 10 ML IJ ONE (07:38)
[2017-11-24] MEDS ORDERED: Bupivacaine HCl 0.25% PF (30 ml) Inj ONE (07:38)
[2017-11-24] MEDS ORDERED: Propofol 10 mg/ml Inj (20 ML) ONE ×2 (07:55→08:08)
[2017-11-24] MEDS ORDERED: Midazolam 2 MG/2 ML VIAL ONE (07:55)
[2017-11-24] MEDS ORDERED: Lidocaine Hydrochloride 10 ML INJ ONE (07:57)
[2017-11-24] MEDS ORDERED: ceFAZolin 1 gm in NS 2 GM/200 ML BAG IVPB ONE (07:57)
[2017-11-24] MEDS ORDERED: Bacitracin 500 Units/gm Oint Foilpak UD ONE (09:53)
[2017-11-24] MEDS ORDERED: HYDROmorphone 0.5 mg/0.5 ml ISec IVP PRN (10:44)
[2017-11-24] MEDS ORDERED: Lactated Ringer's 1,000 ML IV SCH (10:45)
--- NOTE | 2017-11-24 10:52 | PCM.SURG1 ---
Surgeon's Initial Post Op Note - Surgeon's Notes Surgeon: Dr. Romero Injection Molder: PGY1, Radha OMS3 Type of Anesthesia: General LMA Pre-Operative Diagnosis: Left small finger contracture Operative Findings: extensive scar tissue. for details see op note Post-Operative Diagnosis: as above Operation Performed: Tenolysis of left small finger, PIP joint release, tenolysis of flexor tendon Specimen/Specimens Removed: none Estimated Blood Loss: EBL {In ML}: 20 Drains Used: No Drains Post-Op Condition: Good Date of Surgery/Procedure: 11/24/17 Time of Surgery/Procedure: 10:52
[2017-11-24] MEDS ORDERED: Oxycodone/Acetaminophen 5/325 mg Tab PO ONE (11:00)
[2017-11-24 11:34] VITALS: O2SAT 100
[2017-11-24 12:06] VITALS: RESP 18
[2017-11-24 13:23] VITALS: BP 136/81; PULSE 70; TEMP 97.8
--- NOTE | 2017-11-26 19:51 | OP ---
PROCEDURE DATE: 11/24/2017 SURGEON: Lola Romero MD MANAGER GARDEN: Kingsley Rubio DO, PGY-1. ANESTHESIA: General endotracheal with LMA. 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 PROCEDURE: Left small finger tenolysis of the flexor tendon in the palm and in the finger, proximal interphalangeal joint contracture release with volar plate capsulotomy. TOURNIQUET TIME: 87 min at 250 mm Hg. ESTIMATED BLOOD LOSS: 20 mL. COUNTS: Laps, sponge, needle count were correct at the end of the case. CONDITION: The patient was stable upon discharge to recovery. INDICATIONS FOR SURGERY: The patient is a 32-year-old male who approximately 2.5 years ago sustained a proximal phalanx fracture which severed his FDP tendon. He has undergone several reconstructions in order to reestablish finger motion while he does have intact FDP reconstruction, he again developed significant scarring and the plan was for to do tenolysis with capsulotomy of the PIP joint. DESCRIPTION OF THE PROCEDURE: The patient was identified in the holding area. The left arm was marked. He was then brought into the operating room, laid supine on the operating room table. Once general anesthesia was induced, the patient's left arm was placed in the tourniquet and prepped and draped in the usual sterile fashion. Beginning with an Esmarch, the arm was exsanguinated and tourniquet inflated to 250 mmHg of pressure for a total of 87 minutes. Beginning with the mid axial incision along the ulnar aspect of the finger in line to expose the PIP joint, incision was taken down to the skin and dermis. The neurovascular bundles were identified and preserved on the ulnar border of the small finger. Using a 15C blade, the lateral bands were divided as well as the volar plate in order to access the joint. The flexor tendon was noted to be tented onto the skin as we know his previous kristin reconstruction had failed. There were significant scarring along the flexor tendon sheath and using tenolysis instruments, the scar tissue around the flexor tendon was carefully dissected both in proximal and distal direction. A second incision was made in the palm over the metacarpal head using the previous incision and extending proximally to create a V incision over the small finger metacarpal. This allowed us to again enter into the FDP reconstruction and the thought was that his FDS were causing the contracture of the PIP joint and these were divided. The FDP tendon was also tenolysed from this position until pulling of the tendon in the palm resulted in 45 degrees of flexion at the DIP joint. The PIP was able to be extended to neutral after significant manipulation and scar excisions. Decision made not to make an incision at the volar wrist, tourniquet was deflated at this point and pressure held for 5 minutes, any bleeding was controlled with electrocautery. The palmar incision was closed with 4-0 chromic in an interrupted horizontal mattress fashion while the ulnar small finger incision was closed with 5-0 chromic in an interrupted horizontal fashion. The patient tolerated the procedure well. Dressing was applied with Adaptic, Bacitracin, 4x4 gauze, Webril and secured in place with an Diego wrap. The patient tolerated the procedure well, was extubated on the table. Marcaine was infiltrated as a block for postoperative pain relief. He was then brought to the recovery room in stable condition. Lola Romero MD BETTY
== END 2017-11-24 13:00 | disposition home or self-care (01) ==
LOC: C.SDS 05:47
PROVIDERS: ATTEND Plastic Surgery Surgery of the Hand
DX: M21.512 Acquired clawhand, left hand (principal); M67.844 Other specified disorders of tendon, left hand; F41.9 Anxiety disorder, unspecified; F17.210 Nicotine dependence, cigarettes, uncomplicated
CPT/HCPCS: 26442; 26525; J0690; J1170; J2250; J2405; J2704; J3010

== ENCOUNTER 2017-12-24 22:33 | Emergency (ER) | payer MEDICAID ==
[2017-12-24 22:34] VITALS: BMI 30.7
[2017-12-24 22:43] VITALS: BP 143/83; PULSE 86; RESP 20; TEMP 98.5; O2SAT 99
--- NOTE | 2017-12-24 23:02 | C.PDOC ---
History Of Present Illness 32 year old male with a Hx of chronic left hand deformity presents to the ER for wound check. Patient had routine hand surgery done to his left 5th finger in November and is concerned for infection since he still has a scab to the area with an intermittent tingling sensation. Denies weakness, numbness, or drainage of the surgical site. Time Seen by Provider: 12/24/17 22:49 Chief Complaint (Nursing): Upper Extremity Problem/Injury History Per: Patient History/Exam Limitations: no limitations Onset/Duration Of Symptoms: Hrs Current Symptoms Are (Timing): Still Present Recent travel outside of the [place]: No Past Medical History Reviewed: Historical Data, Nursing Documentation, Vital Signs Vital Signs: Last Vital Signs Temp 98.5 F 12/24/17 22:36 Pulse 86 12/24/17 22:36 Resp 20 12/24/17 22:36 BP 143/83 12/24/17 22:36 Pulse Ox 99 12/25/17 01:12 - Medical History PMH: Anxiety, Arthritis, Bipolar Disorder, COPD, Depression, Fractures (HAND LEFT), HIV ("SINCE 2013") Surgical History: Endoscopy - [facility] Procedures GROUP PSYCHOTHERAPY (03/30/17) INDIVIDUAL PSYCHOTHERAPY, COGNITIVE-BEHAVIORAL (03/30/17) INDIVIDUAL PSYCHOTHERAPY, SUPPORTIVE (03/30/17) Family History: States: Unknown Family Hx - Social History Hx Tobacco Use: Yes Hx Alcohol Use: Yes Hx Substance Use: No - Immunization History Hx Tetanus Toxoid Vaccination: No Hx Influenza Vaccination: Yes Hx Pneumococcal Vaccination: No Review Of Systems Musculoskeletal: Positive for: Hand Pain Neurological: Negative for: Weakness, Numbness Physical Exam - Physical Exam Appears: Non-toxic Skin: Warm, Dry Head: Atraumatic, Normacephalic Eye(s): bilateral: Normal Inspection Extremity: No Tenderness, Capillary Refill (<2 seconds ), Other (Rt 5th finger remains in flexion at PIP, old bogginess and hyperpigmentation of hand, 2 well healing surgical incisions with scabs. No erythema, warmth or drainage, no fluctuance.) Pulses: Left Radial: Normal, Right Radial: Normal Neurological/Psych: Oriented x3, Normal Speech, Normal Motor, Normal Sensation ED Course And Treatment O2 Sat by Pulse Oximetry: 99 (Room air) Pulse Ox Interpretation: Normal Progress Note: Patient is resting comfortably in the ER in no pain or discomfort. Patient reassured and advised to follow up with Dr. Romero for further evaluation. 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 - Scribe Statement The provider has reviewed the documentation as recorded by the Scribe Srinivasa Grier All medical record entries made by the Mariajose were at my direction and personally dictated by me. I have reviewed the chart and agree that the record accurately reflects my personal performance of the history, physical exam, medical decision making, and the department course for this patient. I have also personally directed, reviewed, and agree with the discharge instructions and disposition.
== END 2017-12-24 23:41 | disposition home or self-care (01) ==
LOC: C.ER 22:33
DX: Z48.00 Encounter for change or removal of nonsurgical wound dressing (principal)

== ENCOUNTER 2018-01-25 04:27 | Emergency (ER) | payer MEDICAID ==
[2018-01-25 04:27] VITALS: BMI 30.7
[2018-01-25 04:36] VITALS: RESP 18; TEMP 97.6
[2018-01-25] MEDS ORDERED: Sodium Chloride 0.9% 1,000 ML IV ONE (04:49)
--- NOTE | 2018-01-25 04:58 | C.PDOC ---
History Of Present Illness 32 year old male with PMHx of depression, HIV with undetectable viral load presents to the ED for evaluation for " feeling dehydrated". [place] drink much water. Patient denies any other complications, nausea, vomit, diarrhea, SOB, CP. Time Seen by Provider: 01/25/18 04:36 Chief Complaint (Nursing): Medical Clearance History Per: Patient History/Exam Limitations: no limitations Onset/Duration Of Symptoms: Hrs Current Symptoms Are (Timing): Still Present Recent travel outside of the [place]: No Additional History Per: Patient Past Medical History Reviewed: Historical Data, Nursing Documentation, Vital Signs Vital Signs: Last Vital Signs Temp 97.6 F 01/25/18 05:57 Pulse 68 01/25/18 05:57 Resp 18 01/25/18 05:57 BP 124/80 01/25/18 05:57 Pulse Ox 95 01/26/18 16:04 - Medical History PMH: Anxiety, Arthritis, Bipolar Disorder, COPD, Depression, Fractures (HAND LEFT), HIV ("SINCE 2013") Denies: Diabetes, Hepatitis Surgical History: Endoscopy - [facility] Procedures GROUP PSYCHOTHERAPY (03/30/17) INDIVIDUAL PSYCHOTHERAPY, COGNITIVE-BEHAVIORAL (03/30/17) INDIVIDUAL PSYCHOTHERAPY, SUPPORTIVE (03/30/17) Family History: States: Unknown Family Hx - Social History Hx Tobacco Use: Yes Hx Alcohol Use: Yes Hx Substance Use: No - Immunization History Hx Tetanus Toxoid Vaccination: No Hx Influenza Vaccination: Yes Hx Pneumococcal Vaccination: No Review Of Systems Except As Marked, All Systems Reviewed And Found Negative. Constitutional: Positive for: Malaise Neurological: Negative for: Dizziness Physical Exam - Physical Exam Appears: Non-toxic, No Acute Distress Skin: Normal Color, Warm, Dry Head: Atraumatic, Normacephalic Eye(s): bilateral: Normal Inspection Oral Mucosa: Moist Neck: Normal ROM, Supple Chest: Symmetrical Cardiovascular: Rhythm Regular Respiratory: Normal Breath Sounds, No Rales, No Rhonchi, No Wheezing Gastrointestinal/Abdominal: Soft, No Tenderness, No Guarding, No Rebound Extremity: Normal ROM, No Tenderness, No Swelling Neurological/Psych: Oriented x3, Normal Speech Gait: Steady ED Course And Treatment - Laboratory Results Result Diagrams: 01/25/18 05:07 01/25/18 05:07 O2 Sat by Pulse Oximetry: 95 (ON RA) Pulse Ox Interpretation: Normal Medical Decision Making Medical Decision Making: Plan: * Labs * UA * IV fluids Disposition - Disposition Referrals: [facility] [Outside] [facility] [Outside] Disposition: HOME/ ROUTINE Disposition Time: 06:00 Condition: STABLE Additional Instructions: return to er with worsening symptoms or concerns. Instructions: Dehydration, Adult (DC), Weakness (ED) Forms: [employer] (Bulgarian) - Clinical Impression Clinical Impression: Weakness - Scribe Statement The provider has reviewed the documentation as recorded by the Scribe Thiago Walker All medical record entries made by the Scribe were at my direction and personally dictated by me. I have reviewed the chart and agree that the record accurately reflects my personal performance of the history, physical exam, medical decision making, and the department course for this patient. I have also personally directed, reviewed, and agree with the discharge instructions and disposition.
[2018-01-25] MEDS ORDERED: Sodium Chloride 0.9% 1,000 ML ONE (04:59)
[2018-01-25 05:14] LABS: BASO % 0.5 % (0.0-2.0); EOS # 0.1 K/uL (0.0-0.7); EOS % 0.8 % (0.0-4.0); HEMOGLOBIN 11.5 g/dL (12.0-18.0); LYMPH # 2.9 K/uL (1.0-4.3); MEAN CELL VOLUME 74.8 fL (80.0-94.0); MEAN CORPUSCULAR HEMOGLOBIN 24.1 pg (27.0-31.0); MEAN CORPUSCULAR HGB CONC 32.2 g/dL (33.0-37.0); MONO # 0.8 K/uL (0.0-0.8); MONO % 10.5 % (0.0-10.0); NEUT # 3.6 K/uL (1.8-7.0); NEUT % 49.2 % (50.0-75.0); RBC 4.79 Mil/uL (4.40-5.90); RED CELL DISTRIBUTION WIDTH 16.3 % (11.5-14.5); WHITE BLOOD COUNT 7.4 K/uL (4.8-10.8)
[2018-01-25 05:16] LABS: SQUAMOUS EPITHIAL < 1 /hpf (0-5); URINE BILIRUBIN NEGATIVE (NEGATIVE); URINE BLOOD NEGATIVE (NEGATIVE); URINE CLARITY Clear (Clear); URINE COLOR Yellow (YELLOW); URINE GLUCOSE (UA) NORMAL (Normal); URINE LEUKOCYTE ESTERASE NEG Leu/uL (Negative); URINE PROTEIN NEGATIVE (NEGATIVE); URINE UROBILINOGEN NORMAL mg/dL (0.2-1.0)
[2018-01-25 05:27] LABS: ALB/GLOB RATIO 1.6 (1.0-2.1); ALBUMIN 4.6 g/dL (3.5-5.0); ALT/SGPT 47 U/L (21-72); AST/SGOT 33 U/L (17-59); BLOOD UREA NITROGEN 26 mg/dL (9-20); CALCIUM 9.4 mg/dl (8.6-10.4); GFR AFRICAN-AMERICAN > 60; GFR NON-AFRICAN AMERICAN > 60
[2018-01-25 05:30] LABS: BARBITURATES, UR NEGATIVE (NEGATIVE); BENZODIAZEPINES, UR NEGATIVE (NEGATIVE); PHENCYCLIDINE, UR NEGATIVE (NEGATIVE)
[2018-01-25 05:58] VITALS: BP 124/80; PULSE 68
[2018-01-25 06:07] LABS: OPIATES, UR POSITIVE (NEGATIVE)
[2018-01-26 16:05] VITALS: O2SAT 95
== END 2018-01-25 06:20 | disposition home or self-care (01) ==
LOC: C.ER 04:27
DX: R53.1 Weakness (principal)
CPT/HCPCS: 80053; 80324; 80345; 80346; 80349; 80353; 80358; 80361; 81001; 83992; 85025; 96360; 99282; J7030

== ENCOUNTER 2018-03-17 19:15 | Emergency (ER) | payer MEDICAID ==
[2018-03-17 19:15] VITALS: BMI 30.7
[2018-03-17] MEDS ORDERED: Sodium Chloride 0.9% 1,000 ML IV ONE (21:18)
--- NOTE | 2018-03-17 21:21 | C.PDOC ---
History Of Present Illness 32-year-old male presents to the ED for evaluation of abdominal discomfort which began around 2-3 days ago. Patient states he has a history of chronic back problems and surgery to his hand. He had been taking 60mg of Oxycontin twice/day for the last couple years. Patient states he stopped taking the medication 2-3 days ago and his symptoms developed afterward. Patient reports he feels slightly better, but is still experiencing some discomfort in his epigastric region. Patient denies fever, chills. Time Seen by Provider: 03/17/18 20:53 Chief Complaint (Nursing): Dizziness/Lightheaded History Per: Patient History/Exam Limitations: no limitations Onset/Duration Of Symptoms: Days (2-3) Current Symptoms Are (Timing): Still Present Associated Symptoms Preceding Syncopal Episode: No Predromal Symptoms (Sudden Onset) Fall Associated With With Symptoms: No Additional History Per: Patient Past Medical History Reviewed: Historical Data, Nursing Documentation, Vital Signs Vital Signs: Last Vital Signs Temp 98.7 F 03/17/18 23:44 Pulse 59 L 03/17/18 23:44 Resp 18 03/17/18 23:44 BP 161/97 H 03/17/18 23:44 Pulse Ox 100 03/17/18 23:44 - Medical History PMH: Anxiety, Arthritis, Back Problems, Bipolar Disorder, COPD, Depression, Fractures (HAND LEFT), HIV ("SINCE 2013") Denies: Diabetes, Hepatitis Surgical History: Back Surgery, Endoscopy - [facility] Procedures GROUP PSYCHOTHERAPY (03/30/17) INDIVIDUAL PSYCHOTHERAPY, COGNITIVE-BEHAVIORAL (03/30/17) INDIVIDUAL PSYCHOTHERAPY, SUPPORTIVE (03/30/17) Family History: States: Unknown Family Hx - Social History Hx Tobacco Use: Yes Hx Alcohol Use: No Hx Substance Use: No - Immunization History Hx Tetanus Toxoid Vaccination: No Hx Influenza Vaccination: Yes Hx Pneumococcal Vaccination: No Review Of Systems Constitutional: Negative for: Fever, Chills Gastrointestinal: Positive for: Vomiting, Abdominal Pain Physical Exam - Physical Exam Appears: Non-toxic, No Acute Distress Skin: Normal Color, Warm, Dry Head: Atraumatic, Normacephalic Eye(s): bilateral: Normal Inspection Oral Mucosa: Moist Neck: Supple Chest: Symmetrical, No Deformity, No Tenderness Cardiovascular: Rhythm Regular, No Murmur Respiratory: Normal Breath Sounds, No Rales, No Rhonchi, No Wheezing Gastrointestinal/Abdominal: Soft, No Tenderness, No Guarding, No Rebound Extremity: Normal ROM, Capillary Refill (less than 2 seconds ) Neurological/Psych: Oriented x3, Normal Speech, Normal Cognition ED Course And Treatment - Laboratory Results Result Diagrams: 03/17/18 21:46 03/17/18 21:46 Lab Interpretation: No Acute Changes O2 Sat by Pulse Oximetry: 99 (on RA) Pulse Ox Interpretation: Normal Progress Note: Bloodwork and urinalysis ordered and reviewed. Pepcid IVP, Zofran IVP and IV Fluids given. 11:35 Patient states he's fine but is vomiting after po fluids. He denies any abdominal pain. Reglan IV ordered. Reevaluation Time: 00:21 Reassessment Condition: Improved Disposition Counseled Patient/Family Regarding: Studies Performed, Diagnosis, Need For Followup, Rx Given - Disposition Referrals: [facility] [Outside] Disposition: HOME/ ROUTINE Disposition Time: 00:21 Condition: IMPROVED Prescriptions: Ondansetron ODT [Zofran ODT] 1 odt PO QID PRN #10 odt PRN Reason: Nausea/Vomiting Instructions: Drug Withdrawal (DC) Forms: [employer] ([place]er) - Clinical Impression Clinical Impression: Opiate withdrawal - Scribe Statement The provider has reviewed the documentation as recorded by the Scribe (Maggie Nichole) Provider Attestation: All medical record entries made by the Scribe were at my direction and personally dictated by me. I have reviewed the chart and agree that the record accurately reflects my personal performance of the history, physical exam, medical decision making, and the department course for this patient. I have also personally directed, reviewed, and agree with the discharge instructions and disposition.
[2018-03-17 21:58] LABS: URINE BILIRUBIN NEGATIVE (NEGATIVE); URINE BLOOD NEGATIVE (NEGATIVE); URINE CLARITY Clear (Clear); URINE COLOR Colorless (YELLOW); URINE GLUCOSE (UA) NORMAL (Normal); URINE LEUKOCYTE ESTERASE NEG Leu/uL (Negative); URINE PROTEIN NEGATIVE (NEGATIVE); URINE UROBILINOGEN NORMAL mg/dL (0.2-1.0)
[2018-03-17 22:05] LABS: BASO % 0.5 % (0.0-2.0); EOS % 0.2 % (0.0-4.0); HEMOGLOBIN 13.4 g/dL (12.0-18.0); LYMPH # 2.7 K/uL (1.0-4.3); LYMPH % 33.5 % (20.0-40.0); MEAN CELL VOLUME 74.1 fL (80.0-94.0); MEAN CORPUSCULAR HEMOGLOBIN 23.4 pg (27.0-31.0); MEAN CORPUSCULAR HGB CONC 31.6 g/dL (33.0-37.0); MEAN PLATELET VOLUME 8.2 fL (7.2-11.7); MONO # 0.7 K/uL (0.0-0.8); MONO % 8.4 % (0.0-10.0); NEUT # 4.6 K/uL (1.8-7.0); NEUT % 57.4 % (50.0-75.0); NRBC % 0.2 % (0.0-2.0); RBC 5.71 Mil/uL (4.40-5.90); RED CELL DISTRIBUTION WIDTH 16.1 % (11.5-14.5)
[2018-03-17 22:08] LABS: BARBITURATES, UR NEGATIVE (NEGATIVE); BENZODIAZEPINES, UR NEGATIVE (NEGATIVE); OPIATES, UR NEGATIVE (NEGATIVE); PHENCYCLIDINE, UR NEGATIVE (NEGATIVE)
[2018-03-17 22:15] LABS: CALCIUM 9.9 mg/dl (8.6-10.4); GFR NON-AFRICAN AMERICAN > 60; LIPASE 202 U/L (23-300)
[2018-03-17 22:20] VITALS: RESP 18
[2018-03-17 22:21] LABS: ALB/GLOB RATIO 1.5 (1.0-2.1); ALBUMIN 5.1 g/dL (3.5-5.0); ALT/SGPT 38 U/L (21-72); AST/SGOT 43 U/L (17-59); BLOOD UREA NITROGEN 10 mg/dL (9-20)
[2018-03-17 23:45] VITALS: BP 161/97; PULSE 59; TEMP 98.7
[2018-03-18 00:24] VITALS: O2SAT 99
== END 2018-03-18 00:39 | disposition home or self-care (01) ==
LOC: C.ER 19:15
DX: F11.23 Opioid dependence with withdrawal (principal)
CPT/HCPCS: 80053; 80324; 80345; 80346; 80349; 80353; 80358; 80361; 81001; 83690; 83992; 85025; 96361; 96374; 96375; 99285; J2405; J2765; J7030

== ENCOUNTER 2018-09-06 17:54 | Emergency (ER) | payer MEDICAID ==
[2018-09-06 17:54] VITALS: BMI 30.7
[2018-09-06 18:05] VITALS: BP 146/93; PULSE 79; RESP 18; TEMP 98.5; O2SAT 95
--- NOTE | 2018-09-06 20:42 | C.PDOC ---
History Of Present Illness 33 y/o male comes in to ED stating he slipped and fell while at work and injured his lower back and neck last week. Patient was seen at an urgent care where x- rays were performed, but results are unknown. Patient states pain has worsened, prompting the visit. Otherwise he denies any dysuria, hematuria, abdominal pain, nausea, or vomiting. Time Seen by Provider: 09/06/18 18:56 Chief Complaint (Nursing): Back Pain History Per: Patient History/Exam Limitations: no limitations Onset/Duration Of Symptoms: Days Current Symptoms Are (Timing): Still Present Quality Of Discomfort: Aching, "Pain" Associated Symptoms: denies: Incontinence, New Weakness, New Numbness Exacerbating Factor(s): Turning, Movement Recent travel outside of the [place]: No Past Medical History Reviewed: Historical Data, Nursing Documentation, Vital Signs Vital Signs: Last Vital Signs Temp 98.5 F 09/06/18 18:02 Pulse 79 09/06/18 18:02 Resp 18 09/06/18 18:02 BP 146/93 H 09/06/18 18:02 Pulse Ox 95 09/06/18 18:02 - Medical History PMH: Anxiety, Arthritis, Back Problems, Bipolar Disorder, COPD, Depression, Fractures (HAND LEFT), HIV ("SINCE 2013") Denies: Diabetes, Hepatitis Surgical History: Back Surgery, Endoscopy - [facility] Procedures GROUP PSYCHOTHERAPY (03/30/17) INDIVIDUAL PSYCHOTHERAPY, COGNITIVE-BEHAVIORAL (03/30/17) INDIVIDUAL PSYCHOTHERAPY, SUPPORTIVE (03/30/17) Family History: States: No Known Family Hx - Social History Hx Tobacco Use: Yes Hx Alcohol Use: No Hx Substance Use: No - Immunization History Hx Tetanus Toxoid Vaccination: No Hx Influenza Vaccination: Yes Hx Pneumococcal Vaccination: No Review Of Systems Except As Marked, All Systems Reviewed And Found Negative. Constitutional: Negative for: Fever, Chills Eyes: Negative for: Pain ENT: Negative for: Ear Pain Cardiovascular: Negative for: Chest Pain Respiratory: Negative for: Cough, Shortness of Breath Gastrointestinal: Negative for: Nausea, Vomiting, Abdominal Pain Genitourinary: Negative for: Dysuria, Hematuria Musculoskeletal: Positive for: Neck Pain, Back Pain Neurological: Negative for: Weakness, Numbness Physical Exam - Physical Exam Appears: Non-toxic, No Acute Distress Skin: Warm, Dry, No Rash Head: Atraumatic, Normacephalic Eye(s): bilateral: Normal Inspection, PERRL, EOMI Oral Mucosa: Moist Throat: No Erythema, No Exudate Neck: Normal ROM, Other (Tenderness to bilateral paracervical spine) Chest: Symmetrical, No Deformity, No Tenderness Cardiovascular: Rhythm Regular, No Friction Rub, No Murmur Respiratory: Normal Breath Sounds, No Rales, No Rhonchi, No Wheezing Gastrointestinal/Abdominal: Soft, No Tenderness Back: No CVA Tenderness, Other (Tenderness to bilateral paralumbar spine, no saddle anesthesia) Extremity: Normal ROM, No Swelling Neurological/Psych: Oriented x3, Normal Speech, Normal Cranial Nerves, Normal Motor, Normal Sensation Gait: Steady ED Course And Treatment O2 Sat by Pulse Oximetry: 95 (RA) Pulse Ox Interpretation: Normal - CT Scan/US Cervical Spine CT Other Rad Studies (CT/US): Read By Radiologist, Radiology Report Reviewed CT/US Interpretation: FINDINGS: ALIGNMENT: Bony alignment is anatomic. DEGENERATIVE CHANGES: No significant canal stenosis or neural foraminal narrowing evident. SOFT TISSUES: The prevertebral soft tissues are within normal limits. BONES: No acute fracture or aggressive appearing osseous lesion. IMPRESSION: No acute cervical spine abnormality. Lumbar Spine CT Other Rad Studies (CT/US): Read By Radiologist, Radiology Report Reviewed CT/US Interpretation: FINDINGS: ALIGNMENT: Bony alignment is anatomic. DISCS/DEGENERATIVE CHANGES: T12/L1: No significant central canal or neural foraminal stenosis. L1/L2: No significant central canal or neural foraminal stenosis. L2/L3: No significant central canal or neural foraminal stenosis. L3/4: No significant central canal or neural foraminal stenosis. L4/5: No significant central canal or neural foraminal stenosis. L5/S1: No significant central canal or neural foraminal stenosis. BONES: No acute fracture or aggressive appearing osseous lesion. Bilateral pars defects are noted within L5 with no associated spondylolisthesis. SOFT TISSUES: The soft tissues are unremarkable. MISCELLANEOUS: No abnormal contrast enhancement. IMPRESSION: 1. No acute lumbar spine abnormality. 2. Bilateral pars defects within L5 with no associated spondylolisthesis. Medical Decision Making Medical Decision Making: Plan: --Cervical Spine CT --Lumbar Spine CT --Tylenol PO On re-exam, the patient reports improvement of symptoms. Lungs are CTA, heart is RRR, abdomen is soft, non-tender and tolerating PO well. Ambulatory in the ED with steady gait. Follow up with the medical doctor within 1-2 days. Return if worsened. Disposition - Disposition Referrals: Gregorio Olmos MD [Non-Staff] - Disposition: HOME/ ROUTINE Disposition Time: 22:10 Condition: GOOD Additional Instructions: Follow up with the medical doctor within 1-2 days. Return if worsened. 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 - Scribe Statement The provider has reviewed the documentation as recorded by the Scribladan Naylor All medical record entries made by the Destinyiblaadn were at my direction and personally dictated by me. I have reviewed the chart and agree that the record accurately reflects my personal performance of the history, physical exam, medical decision making, and the department course for this patient. I have also personally directed, reviewed, and agree with the discharge instructions and disposition.
--- NOTE | 2018-09-07 06:47 | CT ---
CT cervical spine HISTORY: Fall. Neck pain. COMPARISON: None available. TECHNIQUE: Multiple contiguous axial images were performed through the cervical spine without the use of intravenous contrast. Subsequently, sagittal and coronal reformatted images were obtained. This CT exam was performed using one or more of the following dose reduction techniques: Automated exposure control, adjustment of the mA and/or kV according to patient size, and/or use of iterative reconstruction technique. FINDINGS: Study somewhat limited secondary to prominent patient motion artifact. Mild inferior endplate concavities of the C3, C4, C5, and C6 vertebral bodies. No gross prevertebral soft tissue swelling. Mild sclerosis at the atlantodental interval. No evidence for acute displaced fracture. If there is concern for disc herniation or disc disease, correlation with MRI is recommended. Impression: Negative acute. If pain persists, consider correlation with MRI. A preliminary report was generated at 8:59 p.m. on 09/06/[address] Piero Astudillo from [employer].
--- NOTE | 2018-09-07 07:03 | CT ---
CT lumbar spine HISTORY: Fall. Back pain. Injury. COMPARISON: None available. TECHNIQUE: Multiple contiguous axial images were performed through the lumbar spine without the use of intravenous contrast. Subsequently, sagittal and coronal reformatted images were obtained. This CT exam was performed using one or more of the following dose reduction techniques: Automated exposure control, adjustment of the mA and/or kV according to patient size, and/or use of iterative reconstruction technique. Findings: Grade 1 anterolisthesis of L5 on S1 with associated pars defects noted. Suggestion of possible small posterior disc bulges at the L3-4, L4-5, and L5-S1 levels which would be better delineated with MRI. Schmorl's node formation noted at the inferior endplates of the L3, L4, and L5 vertebral bodies. Endplate sclerosis noted at the inferior endplates of the L1 and L2 vertebral bodies. Punctate sclerotic foci seen at the anterior superior aspect of the L1 vertebral body. Few punctate sclerotic foci seen within the left iliac bone. Impression: 1. Grade 1 anterolisthesis of L5 on S1 with associated pars defects noted. 2. Degenerative changes as described above. If pain persists, further evaluation with MRI is recommended. A preliminary report was generated at 9 p.m. on 09/06/[address] Piero Astudillo from [employer]. Please note this case was placed in the PA review folder.
== END 2018-09-06 22:27 | disposition home or self-care (01) ==
LOC: C.ER 17:54
DX: S16.1XXD Strain of muscle, fascia and tendon at neck level, subsequent encounter (principal); S30.0XXD Contusion of lower back and pelvis, subsequent encounter; W01.0XXD Fall on same level from slipping, tripping and stumbling without subsequent striking against object, subsequent encounter

== ENCOUNTER 2018-10-26 22:34 | Emergency (ER) | payer SELFPAY ==
[2018-10-26 22:35] VITALS: BMI 30.7
[2018-10-26 23:10] VITALS: BP 106/64; PULSE 72; RESP 16; TEMP 98.8; O2SAT 99
--- NOTE | 2018-10-26 23:26 | C.PDOC ---
History Of Present Illness 33 year old male presents stating he feels weak. Patient stopped taking his regular Rx for oxycontin 4 days ago after his medicaid was canceled, he was taking it for chronic wrist, knee, and back pain. Patient claims poor PO intake food for the past 4 days but able to tolerate fluids. Patient requesting IV fluids. Time Seen by Provider: 10/26/18 23:15 Chief Complaint (Nursing): Abdominal Pain History Per: Patient History/Exam Limitations: no limitations Onset/Duration Of Symptoms: Hrs Current Symptoms Are (Timing): Still Present Associated Symptoms: denies: Fever, Chills, Nausea, Vomiting Exacerbating Factors: None Alleviating Factors: None Recent travel outside of the [place]: No Past Medical History Reviewed: Historical Data, Nursing Documentation, Vital Signs Vital Signs: Last Vital Signs Temp 98.8 F 10/26/18 23:03 Pulse 72 10/26/18 23:03 Resp 16 10/26/18 23:03 BP 106/64 10/26/18 23:03 Pulse Ox 99 10/26/18 23:03 - Medical History PMH: Anxiety, Arthritis, Back Problems, Bipolar Disorder, COPD, Depression, Fractures (HAND LEFT), HIV ("SINCE 2013") Denies: Diabetes, Hepatitis Surgical History: Back Surgery, Endoscopy - [facility] GROUP PSYCHOTHERAPY (03/30/17) INDIVIDUAL PSYCHOTHERAPY, COGNITIVE-BEHAVIORAL (03/30/17) INDIVIDUAL PSYCHOTHERAPY, SUPPORTIVE (03/30/17) Family History: States: Unknown Family Hx - Social History Hx Tobacco Use: Yes Hx Alcohol Use: No Hx Substance Use: No - Immunization History Hx Tetanus Toxoid Vaccination: No Hx Influenza Vaccination: Yes Hx Pneumococcal Vaccination: Yes Review Of Systems Constitutional: Positive for: Weakness. Negative for: Fever, Chills Cardiovascular: Negative for: Chest Pain, Palpitations Respiratory: Negative for: Cough, Shortness of Breath Gastrointestinal: Negative for: Nausea, Vomiting Neurological: Negative for: Weakness, Numbness Physical Exam - Physical Exam Appears: Non-toxic, No Acute Distress, Other (Large black male) Skin: Normal Color, Warm Head: Atraumatic, Normacephalic Eye(s): bilateral: Normal Inspection Oral Mucosa: Moist Neck: Normal, Supple Chest: Symmetrical, No Tenderness Cardiovascular: Rhythm Regular Respiratory: Normal Breath Sounds, No Rales, No Rhonchi, No Wheezing Gastrointestinal/Abdominal: Soft, No Tenderness Back: No Vertebral Tenderness, No Paraspinal Tenderness Extremity: Normal ROM (x4), No Tenderness (Wrist, Knee) Neurological/Psych: Oriented x3, Normal Speech ED Course And Treatment O2 Sat by Pulse Oximetry: 99 (Room air) Pulse Ox Interpretation: Normal Medical Decision Making Medical Decision Making: narcotics withdrawal lost his Medicaid now can't get oxycontin no s/s of dehydration Zofran for nausea, encourage fluids Disposition Doctor Will See Patient In The: Office Counseled Patient/Family Regarding: Studies Performed, Diagnosis - Disposition Referrals: [facility] [Outside] [facility] [Outside] [facility] [Outside] [facility] [Outside] Disposition: HOME/ ROUTINE Disposition Time: 23:26 Condition: GOOD Additional Instructions: bland diet Zofran ODT (dissolves under tongue) 1 tab every 8 hours as needed for nausea/vomiting plenty of oral fluids Prescriptions: Ondansetron ODT [Zofran ODT] 4 mg PO Q6H PRN #6 odt PRN Reason: Nausea/Vomiting Instructions: Nausea and Vomiting, Adult (DC), Weaning Patients Off of Pain Drugs Forms: [facility] ([place]) - Clinical Impression Clinical Impression: Opiate withdrawal, Nausea - Scribe Statement The provider has reviewed the documentation as recorded by the Scribe Srinivasa Grier All medical record entries made by the Scribe were at my direction and personally dictated by me. I have reviewed the chart and agree that the record accurately reflects my personal performance of the history, physical exam, medical decision making, and the department course for this patient. I have also personally directed, reviewed, and agree with the discharge instructions and disposition.
== END 2018-10-27 00:27 | disposition home or self-care (01) ==
LOC: C.ER 22:34
DX: F11.23 Opioid dependence with withdrawal (principal); R11.0 Nausea